=== PATIENT | male | born 1970 | race Caucasian/White ===

== ENCOUNTER 2017-05-21 12:00 | Inpatient (IN) | payer BC ==
[2017-05-24] MEDS ORDERED: CEFAZOLIN/Water 2 GM/20 ML SYRINGE ONE (06:15)
[2017-05-24] MEDS ORDERED: Albumin 5% 500 ML ONE (06:26)
[2017-05-24] MEDS ORDERED: Midazolam HCl 5 mg/5 ml Vial ONE (06:28)
[2017-05-24] MEDS ORDERED: Fentanyl 250 MCG/5 ML VIAL ONE (06:28)
[2017-05-24] MEDS ORDERED: Dexmedetomidine 200 MCG/2 ML VIAL ONE (06:28)
[2017-05-24] MEDS ORDERED: Vecuronium 10 MG VIAL ONE ×2 (06:28→15:57)
[2017-05-24] MEDS ORDERED: Heparin 10,000 UNITS/1 ML VIAL 30,000 UNITS in Sodium Chloride 0.9% 1,000 ML FS SCH (06:45)
[2017-05-24 07:43] VITALS: BMI 32.6
[2017-05-24] MEDS ORDERED: Morphine 4 MG/ML VIAL SLOW IVP PRN (12:18)
[2017-05-24] MEDS ORDERED: Acetaminophen 325 MG TAB PO PRN (12:18)
[2017-05-24] MEDS ORDERED: Nitroglycerin 50 MG/250 ML BOT 250 ML IVPB PRN (12:18)
[2017-05-24] MEDS ORDERED: hydrALAZINE 20 MG/ML VIAL SLOW IVP PRN (12:18)
[2017-05-24] MEDS ORDERED: Norepinephrine 8 MG/0.9% NS 250 ML IVPB PRN (12:18)
[2017-05-24] MEDS ORDERED: Fentanyl 100 MCG/2 ML VIAL SLOW IVP PRN (12:18)
[2017-05-24] MEDS ORDERED: Potassium Chloride 20 MEQ/100 ML PREMIX BAG IVPB PRN (12:18)
[2017-05-24] MEDS ORDERED: Post-Op Insulin Drip Protocol IVPB ONE (12:18)
[2017-05-24] MEDS ORDERED: Guaifenesin DM 100-10/5 ML UDCUP PO PRN (12:18)
[2017-05-24] MEDS ORDERED: Bisacodyl 10 MG SUPP PR PRN (12:18)
[2017-05-24] MEDS ORDERED: Phenylephrine 10 MG/NS 250 ML 250 ML IVPB PRN (12:18)
[2017-05-24] MEDS ORDERED: HYDROcodone/Acetaminophen 5/325 mg Tablet PO PRN (12:18)
[2017-05-24] MEDS ORDERED: Promethazine HCl 25 MG/ML VIAL IM PRN (12:18)
[2017-05-24] MEDS ORDERED: Hetastarch 6% 500 ML 500 ML IVPB PRN (12:18)
[2017-05-24] MEDS ORDERED: Ondansetron HCl/PF 4 MG/2 ML Vial IVP PRN (12:18)
[2017-05-24] MEDS ORDERED: DOPamine 400 MG/D5W 250 ML 250 ML IVPB PRN (12:18)
[2017-05-24] MEDS ORDERED: Bisacodyl 5 MG TAB PO PRN (12:18)
[2017-05-24] MEDS ORDERED: Mag-Al 1200 mg/1200 mg/30 ML UDCUP PO PRN (12:18)
[2017-05-24] MEDS ORDERED: Magnesium Sulfate 5 GM in Sodium Chloride 0.9% 1,000 ML IV SCH (12:18)
--- NOTE | 2017-05-24 12:34 | OP ---
POSTOPERATIVE DIAGNOSIS: Coronary artery disease. PROCEDURE: Coronary artery bypass graft x5, good quality MERINO to a 1.5 mm LAD at the takeoff of the second diagonal and 1.25 mm LAD distally on the heart. Good quality radial artery to a 1.25 mm OM, s aphenous vein good quality to a 1.5 mm proximal diagonal and a 2 mm posterolateral. SURGEON: Dr. Stock. HEALTH THERAPIST: Dr. Garcia. TRANSFUSION: None. PROCEDURE IN DETAIL: After adequate anesthesia had been obtained, the patient was prepped and draped and I harvested the left radial artery. Collateral flow was ensured with plethysmography and that t his wound was closed. I then began the endovascular vein harvest of the greater saphenous vein, mobi lizing the vein on the left. Prior to dividing any branches, I turned my attention to median sternot rell where left internal mammary artery was harvested, at which point Dr. Garcia came and completed the endovascular vein harvest. The patient was heparinized, mammary divided distally, and passed sports team marketing intern ior to the thymus gland. Aorta and right atrium were cannulated and cardiopulmonary bypass was insti tuted. Vessels were inspected, aorta cross-clamped, and a liter of cold blood cardioplegia was given through the aortic root. The lateral aspect of the heart had significant scar tissue related to pre vious occlusion of the circumflex system. Transesophageal echo, however, showed there was fairly goo d lateral wall motion. Distal anastomoses were all completed following which the cross-clamp was rem blank and the partial occluding clamp placed and 2 vein grafts anastomosed to the aortic root from the right and diagonal vein grafts. These were marked with rings following which the radial artery was anastomosed to the dia of the diagonal vein graft. The patient was then weaned from cardiopulmonary bypass, cannulas removed, and protamine given systemically. Aortic cannulation site was secured wit h a 4-0 Prolene suture. Mediastinal and left pleural drains were placed, following which the sternum was reapproximated with #7 interrupted wire using vancomycin paste on the sternal edges, platelet ri ch blood, and platelet-poor plasma. Subcutaneous tissue and skin were closed in layers.
[2017-05-24 12:44] LABS: INR-International Normal Ratio 1.3; PTT 27.9 SEC (22.9-36.1)
[2017-05-24 12:47] LABS: Actual Bicarbonate (HCO3a) 20.5 mEq/L (22-26); Base Excess (BEa) -4.4 mEq/L (0 (+/-) 2.5); CO2 Tension 37.1 mmHg (35.0-45.0); Hematocrit-ABG 33.7 % (42.0-52.0); Hemoglobin (Hb) 11.9 g/dL (14.0-18.0); pH, Arterial 7.36 (7.35-7.45)
[2017-05-24 12:48] LABS: ALV-art Gradient 146.125 (0-20); Calcium, Ionized 1.1 mmol/L (1.12-1.30); Puncture Site ALINE
[2017-05-24] MEDS ORDERED: Dextrose 5% in Water 1,000 ML IV PRN (12:49)
[2017-05-24] MEDS ORDERED: Dextrose 50% Abboject 50 ML SYRINGE SLOW IVP PRN (12:49)
[2017-05-24 13:00] LABS: Anion Gap 11 mmol/L (10-20); BUN (Urea Nitrogen) 18 mg/dL (8.9-20.6); Calc. Creatinine Clearance 94 mL/min (70-130); Calcium 7.6 mg/dL (7.8-10.44); Carbon Dioxide 21 mmol/L (22-29); Chloride 109 mmol/L (98-107); Estimated GFR-MDRD 54; Glucose 144 mg/dL (70-105); Sodium 137 mmol/L (136-145)
[2017-05-24] MEDS: Sodium Chloride 0.45% 1,000 ML IV SCH ×2 (13:06→21:19)
[2017-05-24] MEDS: Insulin Regular 300 UNITS/3 ML VIAL SC PRN ×2 (13:09→23:53)
[2017-05-24 13:22] LABS: #Basophils 0.1 thou/uL (0.0-0.2); #Eosinphils 0.1 thou/uL (0.0-0.7); #Lymphocytes 2.1 thou/uL (1.20-3.40); #Monocytes 0.9 thou/uL (0.11-0.59); #Neutrophils 12.9 thou/uL (1.40-6.50); %Basophils 0.4 % (0.0-1.0); %Eosinophils 0.9 % (0.0-10.0); %Lymphocytes 12.7 % (21.0-51.0); %Monocytes 5.6 % (0.0-10.0); %Neutrophils 80.3 % (42.0-75.0); Hemoglobin 12.2 g/dL (14.0-18.0); Mean Corpuscular HGB CONC 34.5 g/dL (32.0-36.0); Mean Corpuscular Hemoglobin 31.6 pg (27.0-31.0); Mean Corpuscular Volume 91.5 fl (80.0-94.0); Mean Platelet Volume 7.1 fL (7.4-10.4); Platelet Count 172 thou/uL (130-400); RBC Distribution Width 10.9 % (11.5-14.5); Red Blood Cell (RBC) Count 3.85 mill/uL (4.70-6.10); White Blood Cell (WBC) Count 16.1 thou/uL (4.8-10.8)
[2017-05-24] MEDS: CEFAZOLIN/Water 2 GM/20 ML SYRINGE SLOW IVP SCH ×2 (13:35→21:16)
[2017-05-24] MEDS: Fentanyl 100 MCG/2 ML VIAL SLOW IVP PRN ×4 (13:41→22:34)
--- NOTE | 2017-05-24 15:23 | RAD ---
PORTABLE CHEST 1 VIEW: Date: 05/24/17 Time: 1223 hours HISTORY: Postop open heart surgery. Respiratory failure. FINDINGS/IMPRESSION: There are changes of median sternotomy. There is an endotracheal tube with tip at the level of the cl avicular heads. A nasogastric tube is seen in the stomach. There is a right subclavian central line w ith tip in the projection of the SVC. The heart size is enlarged. Mediastinal and left-sided chest tu bes are present. No lobar consolidation, pneumothoraces, hafsa pulmonary edema, or large effusions ar e identified. A small left pleural effusion may be present. POS: [facility]
[2017-05-24] MEDS ORDERED: Papaverine 60 MG/2 ML VIAL ONE (15:57)
[2017-05-24] MEDS ORDERED: Potassium Chloride 60 MEQ/30 ML VIAL ONE (15:57)
[2017-05-24] MEDS ORDERED: Aminocaproic Acid 5 GM/20 ML VIAL ONE (15:57)
[2017-05-24] MEDS ORDERED: Cardioplegic Soln 1,000 ML BAG ONE (15:57)
[2017-05-24] MEDS ORDERED: PHENYLEPHRINE-NS 100 MCG/ML 10 ML SYRINGE ONE (15:57)
[2017-05-24] MEDS ORDERED: Magnesium 5 GM/10 ML VIAL ONE (15:57)
[2017-05-24] MEDS ORDERED: Lidocaine 2% PF 100 mg/5 ml Syringe ONE (15:57)
[2017-05-24] MEDS ORDERED: Lidocaine 1% PF 5 ML VIAL ONE (15:57)
[2017-05-24] MEDS ORDERED: Sodium Bicarb 50 MEQ/50 ML VIAL ONE (15:57)
[2017-05-24] MEDS ORDERED: Nitroglycerin 50 MG/250 ML BOT ONE (15:57)
[2017-05-24] MEDS ORDERED: Calcium Chloride 1 GM/10 ML Abboject SYRINGE ONE (15:57)
[2017-05-24] MEDS ORDERED: Heparin 30,000 units/30 ml VIAL ONE (15:57)
[2017-05-24] MEDS ORDERED: Propofol 200 MG/20 ML VIAL ONE (15:57)
[2017-05-24] MEDS ORDERED: ePHEDrine/0.9% NaCl/PF SYRINGE 50 mg/10 ml ONE (15:57)
[2017-05-24] MEDS ORDERED: Heparin 5,000 UNITS/ML VIAL ONE (15:57)
[2017-05-24] MEDS ORDERED: Thrombin 5000 UNITS/5 ML VIAL ONE (15:57)
[2017-05-24] MEDS ORDERED: Protamine Sulfate 250 MG/25 ML VIAL ONE (15:57)
[2017-05-24 16:16] LABS: Actual Bicarbonate (HCO3a) 20.1 mEq/L (22-26); Base Excess (BEa) -4.8 mEq/L (0 (+/-) 2.5); CO2 Tension 36.5 mmHg (35.0-45.0); Calcium, Ionized 1.1 mmol/L (1.12-1.30); Hematocrit-ABG 34.6 % (42.0-52.0); Hemoglobin (Hb) 12.2 g/dL (14.0-18.0); pH, Arterial 7.36 (7.35-7.45)
[2017-05-24 16:17] LABS: ALV-art Gradient 62.575 (0-20); Puncture Site ALINE
--- NOTE | 2017-05-24 16:25 | CON ---
DATE OF CONSULTATION: 05/24/2017 SERVICE: Pulmonary Medicine. REASON FOR CONSULTATION: ICU patient. HISTORY OF PRESENT ILLNESS: The patient is a 47-year-old white male with past medical history signif icant for morbid obesity, dyslipidemia, and hypertension. He was in his usual state of health when s tarted having onset of increasing dyspnea that limited his activity. He was being worked up in the o [facility] setting where he was demonstrated to have severe 3-vessel disease. He was referred for a c oronary bypass graft surgery. He is immediately postop day #0 from that surgery. He is breathing co mfortably on mechanical ventilation. The weaning protocol is in place. He is awake and alert. He i s following all commands. Otherwise, he was in his usual state of health prior to the operation. PAST MEDICAL HISTORY: 1. Asthma. 2. Dyslipidemia. 3. Hypertension. 4. Coronary artery disease. PAST SURGICAL HISTORY: 1. Herniorrhaphy. 2. Right shoulder surgery. 3. Repair of femur fracture. FAMILY HISTORY: Noncontributory. SOCIAL HISTORY: He drinks some alcohol occasionally. He denies any illicit drugs or smoking cigaret lidia. He did some chewing tobacco previously. He has no exposure to chemicals, dust asbestos or tube rculosis. ALLERGIES: No known drug allergies. MEDICATIONS: List of his inpatient medications were reviewed. There are no specific updates made at this time. REVIEW OF SYSTEMS: General, head, ears, eyes, nose, throat, cardiovascular, respiratory, GI, , mus culoskeletal, neurologic and skin is negative except as mentioned in the HPI. PHYSICAL EXAMINATION: VITAL SIGNS: Afebrile, pulse 82, blood pressure 94/46, respirations 8, saturation 100% on 2 liters n anna cannula. HEENT: Normocephalic, atraumatic. Sclerae are white, conjunctivae pink. Oral and nasal mucosa is m oist without lesions. LUNGS: Decent air entry. He has no prolonged expiratory phase. There are some crackles present, bu t I do not appreciate rhonchi or wheezing currently. HEART: Normal rate, regular. ABDOMEN: Soft. Tender to palpation, particularly in the epigastric region. There is no rebound or guarding. Bowel sounds are hypoactive. GENITOURINARY: Pereira catheter in place. NEUROLOGIC: Grossly nonfocal. LABORATORY DATA: WBC 16.1, hemoglobin 12.0 and roughly stable. INR is 1.3. PH of 7.36, pCO2 of 37, pO2 of 164. Creatinine is 1.39 and roughly stable. Basic metabolic profile is otherwise unremarkab le. Calcium is 7.6, however. IMAGING: Chest x-ray demonstrates a left-sided chest tube. There is a mediastinal drain is also in place. Median sternotomy wires are there. The endotracheal tube terminates roughly 5 cm above the l evel of the syed. There is likely a left-sided pleural effusion present. The right costophrenic a ngle remains sharp. The subclavian central venous catheter terminates in the right atrium. ASSESSMENT: 1. Acute hypoxic respiratory failure. 2. Asthma without acute exacerbation. 3. Coronary artery disease, status post coronary artery bypass graft x5 vessels. PLAN: We will provide the patient with p.r.n. nebulized medications. We will continue our routine p ostop care. Pulmonary Critical Care will continue to follow in this location. Ultimately, the patie nt may benefit from outpatient evaluation for sleep apnea. CRITICAL CARE TIME: 30 minutes.
[2017-05-24 18:30] LABS: Potassium 5.2 mmol/L (3.5-5.1)
[2017-05-24] MEDS ORDERED: Atorvastatin Calcium 20 MG TAB PO SCH (21:00)
[2017-05-24] MEDS ORDERED: Famotidine/PF 20 mg/2ml Vial SLOW IVP SCH (21:00)
[2017-05-24] MEDS: HYDROcodone/Acetaminophen 5/325 mg Tablet PO PRN (23:48)
[2017-05-25] MEDS: Fentanyl 100 MCG/2 ML VIAL SLOW IVP PRN ×8 (02:02→18:20)
[2017-05-25 04:21] LABS: #Lymphocytes 2.1 thou/uL (1.20-3.40); #Monocytes 1.3 thou/uL (0.11-0.59); #Neutrophils 7.6 thou/uL (1.40-6.50); %Basophils 0.2 % (0.0-1.0); %Eosinophils 0.1 % (0.0-10.0); %Lymphocytes 18.9 % (21.0-51.0); %Monocytes 11.9 % (0.0-10.0); %Neutrophils 68.8 % (42.0-75.0); Hemoglobin 12.1 g/dL (14.0-18.0); Mean Corpuscular HGB CONC 34.7 g/dL (32.0-36.0); Mean Corpuscular Hemoglobin 32.4 pg (27.0-31.0); Mean Corpuscular Volume 93.5 fl (80.0-94.0); Mean Platelet Volume 7.1 fL (7.4-10.4); Platelet Count 208 thou/uL (130-400); RBC Distribution Width 11.1 % (11.5-14.5); Red Blood Cell (RBC) Count 3.72 mill/uL (4.70-6.10); White Blood Cell (WBC) Count 11.1 thou/uL (4.8-10.8)
[2017-05-25 04:34] LABS: Anion Gap 10 mmol/L (10-20); BUN (Urea Nitrogen) 17 mg/dL (8.9-20.6); Calc. Creatinine Clearance 93 mL/min (70-130); Calcium 7.8 mg/dL (7.8-10.44); Carbon Dioxide 24 mmol/L (22-29); Chloride 107 mmol/L (98-107); Estimated GFR-MDRD 53; Glucose 117 mg/dL (70-105); Potassium 4.4 mmol/L (3.5-5.1); Sodium 137 mmol/L (136-145)
[2017-05-25] MEDS: HYDROcodone/Acetaminophen 5/325 mg Tablet PO PRN (04:48)
[2017-05-25] MEDS: CEFAZOLIN/Water 2 GM/20 ML SYRINGE SLOW IVP SCH (05:13)
[2017-05-25] MEDS: Sodium Chloride 0.45% 1,000 ML IV SCH (05:13)
[2017-05-25] MEDS ORDERED: Mineral Oil ENEMA PR PRN (06:55)
[2017-05-25] MEDS ORDERED: Zolpidem Tartrate 5 MG TAB PO PRN (06:55)
[2017-05-25] MEDS ORDERED: Bisacodyl 5 MG TAB PO PRN (06:55)
[2017-05-25] MEDS ORDERED: Mag-Al 1200 mg/1200 mg/30 ML UDCUP PO PRN (06:55)
[2017-05-25] MEDS ORDERED: Guaifenesin DM 100-10/5 ML UDCUP PO PRN (06:55)
[2017-05-25] MEDS ORDERED: Ondansetron HCl/PF 4 MG/2 ML Vial IVP PRN (06:55)
[2017-05-25] MEDS ORDERED: Milk Of Magnesia 30 ML UDCUP PO PRN (06:55)
[2017-05-25] MEDS ORDERED: Acetaminophen 325 MG TAB PO PRN (06:55)
[2017-05-25] MEDS ORDERED: HYDROcodone/Acetaminophen 5/325 mg Tablet PO PRN ×2 (06:55)
[2017-05-25] MEDS ORDERED: Nitroglycerin 0.4 MG TAB (25 Tab Bottle) SL PRN (06:55)
[2017-05-25] MEDS ORDERED: Bisacodyl 10 MG SUPP PR PRN (06:55)
[2017-05-25] MEDS ORDERED: Fentanyl 100 MCG/2 ML VIAL SLOW IVP PRN (06:55)
--- NOTE | 2017-05-25 08:37 | RAD ---
PORTABLE UPRIGHT FRONTAL CHEST RADIOGRAPH: Date: 05-25-17 Comparison: 05-14-17 History: Evaluate chest following open heart surgery. FINDINGS: Post-surgical drainage catheters overlie the lower left hemithorax and the mediastinum. Endotracheal tube and nasogastric tube have been removed. Midline sternotomy wires are unchanged. Stable right chucky ed vascular catheter. Mild hazy increased density is seen in the medial left lung base suggesting vol ume loss. No focal consolidation or alveolar edema. IMPRESSION: Lines and tubes as detailed above. Mild patchy opacity in the medial left base noted. POS: H
[2017-05-25] MEDS: Aspirin 325 mg Enteric Coated Tablet PO SCH (08:47)
[2017-05-25] MEDS: Polyethylene Glycol 3350 17 GM Packet PO SCH (08:47)
[2017-05-25] MEDS: Famotidine 20 MG TAB PO SCH ×2 (08:47→20:19)
[2017-05-25] MEDS ORDERED: Aspirin 325 MG TAB PO SCH (09:00)
--- NOTE | 2017-05-25 09:07 | PRG ---
DATE OF SERVICE: 05/25/2017 SERVICE: Pulmonary Medicine. INTERVAL HISTORY: The patient is doing fine from a respiratory standpoint. He was having significan t amounts of back discomfort this morning. When the chest tubes were pulled, it is eased up a little bit, although it is still there. He previously had horrendous pleuritic chest discomfort that made for multiple nights. That being said, this is also improved. He denies any current fevers, chills o r overnight events. PHYSICAL EXAMINATION: VITAL SIGNS: Afebrile, pulse 72, blood pressure 199/64, respirations 12, saturation 94% on 2 liters nasal cannula. GENERAL: The patient is awake, alert, no apparent distress. LUNGS: Decent air entry. I do not appreciate wheezing, rhonchi, or crackles today. HEART: Normal rate, regular. ABDOMEN: Soft, nontender, nondistended. Bowel sounds are positive. MUSCULOSKELETAL: No cyanosis or clubbing. There is a trace pitting in the bilateral lower extremiti es. NEUROLOGIC: Grossly nonfocal. LABORATORY DATA: WBC 11.1, hemoglobin 12.1 and stable, platelets 208,000. INR 1.3. PH 7.36, pCO2 3 6, pO2 177 as of yesterday. Creatinine 1.41 and roughly stable. Basic metabolic profile is otherwis e unremarkable. Calcium 7.8. IMAGING: Chest x-ray demonstrates stable tubes and lines. Interval extubation has been performed. There is mediastinal, and left-sided chest tube which remain in stable position. A right subclavian central venous catheter terminates at the cavoatrial junction. No obvious effusion or infiltrate is evident. There seems to be a little volume loss in both lungs. ASSESSMENT: 1. Acute hypoxic respiratory failure, possibly secondary to a little atelectasis. 2. Asthma without acute exacerbation. 3. Coronary artery disease, status post coronary artery bypass graft x5 vessels, postop day #1. PLAN: We will continue p.r.n. nebulized medications. In the outpatient setting, the patient may qi efit from a sleep apnea evaluation. We will talk to the patient about whether or not he is intereste d in this on the floor.
[2017-05-25] MEDS: Cyclobenzaprine 10 MG TAB PO PRN ×2 (11:33→20:18)
--- NOTE | 2017-05-25 13:31 | CON ---
DATE OF CONSULTATION: 05/24/2017 REASON FOR CONSULTATION: Coronary artery disease, bypass surgery. HISTORY OF PRESENT ILLNESS: Mr. Gee is a very pleasant 47-year-old white gentleman, very well know n to myself who comes to the hospital for a planned bypass surgery. He presented to my office with s ymptoms of chest pain and shortness of breath with exertion. He had a very abnormal stress test and had heart catheterization that showed multivessel disease. He underwent bypass surgery earlier today by Dr. Stock. He did well postoperatively. On my evaluation today, he was still intubated, but thomas ke and following commands. Blood pressure is maintaining without issues. PAST MEDICAL HISTORY: 1. Bronchial asthma. 2. Hyperlipidemia. 3. Hypertension. 4. Coronary artery disease. PAST SURGICAL HISTORY: 1. Herniorrhaphy. 2. Right shoulder surgery. 3. Femur fracture repair. 4. CABG x5 as above. FAMILY HISTORY: Noncontributory. SOCIAL HISTORY: Social alcohol use, no drug or tobacco use. He used to be an athlete in college. ALLERGIES: No known drug allergies. OUTPATIENT MEDICATIONS: 1. Aspirin 81 a day. 2. Albuterol inhaler. 3. Zolpidem. 4. Hydrochlorothiazide 25 mg. 5. Losartan 100 mg a day. 6. Atorvastatin 20 mg a day. REVIEW OF SYSTEMS: Unobtainable as the patient is sedated and intubated. PHYSICAL EXAMINATION: VITAL SIGNS: Temperature 97.4, pulse 82, respiration rate 12, satting 96% on 30% FiO2. GENERAL: Awake, following commands, but remains intubated. LUNGS: Clear. CARDIOVASCULAR: S1, S2. There is a 2 component rub likely from the chest. ABDOMEN: Soft. EXTREMITIES: 1+ edema. SKIN: Warm and dry. LABORATORY WORK: Reviewed. ASSESSMENT AND PLAN: 1. Coronary artery disease, status post bypass surgery. 2. Status post coronary artery bypass graft x5. PLAN: 1. Continue postop care. Most likely, he will be extubated soon as he is already awake and followin g commands. 2. Aspirin, statin for life. Beta ismael and ARB inhibitor once blood pressure allows. Most likel y, all his blood pressure medication will be changed completely once he is discharged. [place]. 3. We will follow.
--- NOTE | 2017-05-25 17:47 | PDOC.CTH ---
Cardiology Progress Note - Subjective He had his chest tubes our and is on the floor now. He is having a lot of pain issues on current pain regimen. - Objective Vital Signs Temp Pulse Pulse Pulse Resp BP BP 05/25/17 16:48 99.3 F 89 16 05/25/17 12:55 98.5 F 05/25/17 10:00 97.9 F 69 16 05/25/17 08:44 69 79 134/56 L 103/68 05/25/17 07:10 98.1 F 72 12 BP Pulse Ox Pulse Ox Pulse Ox 05/25/17 16:48 118/68 91 L 05/25/17 12:55 114/68 05/25/17 10:00 91 L 05/25/17 08:44 93 L 93 L 05/25/17 07:10 94 L Weight 226 lb 13.69 oz 05/24/17 05/25/17 05/26/17 06:59 06:59 06:59 Intake Total 2976 Output Total 2325 270 Balance 651 -270 - Physical Examination General/Neuro: alert & oriented x3, NAD Neck: no JVD present Lungs: CTA, unlabored respirations Heart: RRR Abdomen: NT/ND Extremities: + edema B (1+) - Telemetry Telemetry Rhythm: NSR - Labs Result Diagrams: 05/25/17 04:16 05/25/17 04:16 - Assessment/Plan 1. Multivessel CAD. 2. S/P CABG 3. HTN 4. HLP PLAN: - Increase PT as tolerated. - Will start low dose BB. ACEI if BP allows. - Aspirin and statin for life. - Will try toradol for pain.
[2017-05-25] MEDS: Ketorolac Tromethamine 30 MG/ML VIAL IVP SCH ×2 (18:57→23:43)
[2017-05-25] MEDS: Atorvastatin Calcium 20 MG TAB PO SCH (20:19)
[2017-05-26] MEDS: Ketorolac Tromethamine 30 MG/ML VIAL IVP SCH ×4 (05:18→23:57)
[2017-05-26] MEDS: Polyethylene Glycol 3350 17 GM Packet PO SCH (08:34)
[2017-05-26] MEDS: Cyclobenzaprine 10 MG TAB PO PRN ×2 (08:38→21:22)
[2017-05-26] MEDS: Potassium Chloride 10 MEQ TAB PO SCH (08:38)
[2017-05-26] MEDS: Aspirin 325 mg Enteric Coated Tablet PO SCH (08:39)
[2017-05-26] MEDS: Famotidine 20 MG TAB PO SCH ×2 (08:39→21:22)
[2017-05-26] MEDS: Furosemide 40 MG TAB PO SCH (08:39)
[2017-05-26 12:13] LABS: Actual Bicarbonate (HCO3a) 22.5 mEq/L (22-26); Base Excess (BEa) -2.5 mEq/L (0 (+/-) 2.5); Hematocrit-ABG 41.1 % (42.0-52.0); Hemoglobin (Hb) 13.9 g/dL (14.0-18.0); O2 Tension (PaO2) 428.4 mmHg (80.0-100.0); pH, Arterial 7.37 (7.35-7.45)
[2017-05-26 12:14] LABS: Analyzer IN Cardio OR; Calcium, Ionized 1.1 mmol/L (1.12-1.30); Puncture Site ALINE
[2017-05-26 12:14] LABS: Actual Bicarbonate (HCO3a) 20.1 mEq/L (22-26); Base Excess (BEa) -4.7 mEq/L (0 (+/-) 2.5); CO2 Tension 36.7 mmHg (35.0-45.0); Hematocrit-ABG 39.1 % (42.0-52.0); Hemoglobin (Hb) 13.5 g/dL (14.0-18.0); O2 Tension (PaO2) 485.6 mmHg (80.0-100.0); pH, Arterial 7.36 (7.35-7.45)
[2017-05-26 12:15] LABS: Analyzer IN Cardio OR; Calcium, Ionized 1.1 mmol/L (1.12-1.30); Puncture Site ALINE
[2017-05-26 12:15] LABS: CO2 Tension 37.6 mmHg (35.0-45.0); pH, Arterial 7.38 (7.35-7.45)
[2017-05-26 12:16] LABS: Actual Bicarbonate (HCO3a) 21.9 mEq/L (22-26); Analyzer IN Cardio OR; Base Excess (BEa) -2.8 mEq/L (0 (+/-) 2.5); Calcium, Ionized 0.9 mmol/L (1.12-1.30); Hematocrit-ABG 29.9 % (42.0-52.0); Hemoglobin (Hb) 10.3 g/dL (14.0-18.0); O2 Tension (PaO2) 557.2 mmHg (80.0-100.0); Puncture Site ALINE
[2017-05-26 12:17] LABS: Actual Bicarbonate (HCO3a) 22.2 mEq/L (22-26); Base Excess (BEa) -3.6 mEq/L (0 (+/-) 2.5); Hematocrit-ABG 28.3 % (42.0-52.0); Hemoglobin (Hb) 9.7 g/dL (14.0-18.0); O2 Tension (PaO2) 393.3 mmHg (80.0-100.0); pH, Arterial 7.33 (7.35-7.45)
[2017-05-26 12:18] LABS: Analyzer IN Cardio OR; Calcium, Ionized 1.1 mmol/L (1.12-1.30); Puncture Site ALINE
[2017-05-26 12:19] LABS: Actual Bicarbonate (HCO3a) 20.8 mEq/L (22-26); Analyzer IN Cardio OR; Base Excess (BEa) -3.5 mEq/L (0 (+/-) 2.5); CO2 Tension 34.6 mmHg (35.0-45.0); Calcium, Ionized 1.2 mmol/L (1.12-1.30); O2 Tension (PaO2) 448.5 mmHg (80.0-100.0); Puncture Site ALINE
[2017-05-26] MEDS: Fentanyl 100 MCG/2 ML VIAL SLOW IVP PRN (16:44)
--- NOTE | 2017-05-26 17:18 | PRG ---
DATE OF SERVICE: 05/26/2017 SERVICE: Pulmonary Medicine. INTERVAL HISTORY: The patient is doing fantastic from a respiratory perspective. He has been weaned down to room air. He denies any chest pain, fevers, chills, nausea, vomiting or shortness of breath . He got up and walked today, up and down the hallway. He has done this on 4 separate occasions. O therwise, he is feeling okay. He is returning to his usual state slowly. PHYSICAL EXAMINATION: VITAL SIGNS: Afebrile, pulse 91, blood pressure 117/69, respirations 18, saturation 93% on room air. GENERAL: The patient is awake, alert, no apparent distress. LUNGS: Decent air entry without prolonged expiratory phase, wheezing, rhonchi or crackles. HEART: Normal rate, regular. ABDOMEN: Soft, nontender, and nondistended. Bowel sounds are positive. MUSCULOSKELETAL: No cyanosis or clubbing. There is trace pitting in the bilateral lower extremities . NEUROLOGIC: Grossly nonfocal. LABORATORY DATA: Glucose ranges from 121-136. ASSESSMENT: 1. Acute hypoxic respiratory failure, resolved. 2. Asthma without acute exacerbation. 3. Coronary artery disease, status post coronary artery bypass graft x5 vessels, postop day #2. DISCUSSION AND PLAN: At this point, the patient has no requirements for ongoing pulmonary or [facility] care opinion. He has no signs of an acute asthma attack at this time. If he develops any increasi ng respiratory distress, give me a phone call. Otherwise, I will sign off.
--- NOTE | 2017-05-26 17:32 | PDOC.CTH ---
Cardiology Progress Note - Subjective He is doing better today, His pain is better controlled with toradol. - Objective Vital Signs Temp Pulse Pulse Pulse Resp BP BP 05/26/17 16:45 99.3 F 91 18 05/26/17 14:50 99 90 119/61 111/59 L 05/26/17 11:29 98.7 F 87 15 05/26/17 08:37 88 85 121/68 126/67 05/26/17 08:35 99.7 F H 87 16 05/26/17 08:33 99.7 F H 87 16 BP BP Pulse Ox Pulse Ox Pulse Ox 05/26/17 16:45 117/69 93 L 05/26/17 14:50 94 L 95 05/26/17 11:29 121/66 91 L 05/26/17 08:37 94 L 97 05/26/17 08:35 93 L 05/26/17 08:33 126/67 Weight 232 lb 9.6 oz 05/25/17 05/26/17 05/27/17 06:59 06:59 06:59 Intake Total 2976 960 1200 Output Total 2325 595 450 Balance 651 365 750 - Physical Examination General/Neuro: alert & oriented x3, NAD Neck: no JVD present Lungs: CTA, unlabored respirations Heart: RRR, other: (2 component rub. ) Abdomen: NT/ND Extremities: + edema B (1+) - Telemetry Telemetry Rhythm: NSR - Labs Result Diagrams: 05/25/17 04:16 05/25/17 04:16 - Assessment/Plan 1. Multivessel CAD. 2. S/P CABG 3. HTN 4. HLP PLAN: - Increase PT as tolerated. - BP borderline low for BB & ACEI. - Aspirin and statin for life. - Toradol working well for pain.
[2017-05-26] MEDS: Atorvastatin Calcium 20 MG TAB PO SCH (21:22)
[2017-05-27] MEDS: Ketorolac Tromethamine 30 MG/ML VIAL IVP SCH ×3 (05:55→17:33)
[2017-05-27 06:29] LABS: Anion Gap 9 mmol/L (10-20); BUN (Urea Nitrogen) 21 mg/dL (8.9-20.6); Calc. Creatinine Clearance 82 mL/min (70-130); Calcium 8.6 mg/dL (7.8-10.44); Carbon Dioxide 27 mmol/L (22-29); Chloride 105 mmol/L (98-107); Estimated GFR-MDRD 46; Glucose 99 mg/dL (70-105); Potassium 4.2 mmol/L (3.5-5.1); Sodium 137 mmol/L (136-145)
[2017-05-27] MEDS: Furosemide 40 MG TAB PO SCH (08:45)
[2017-05-27] MEDS: Potassium Chloride 10 MEQ TAB PO SCH (08:45)
[2017-05-27] MEDS: Polyethylene Glycol 3350 17 GM Packet PO SCH (08:45)
[2017-05-27] MEDS: Aspirin 325 mg Enteric Coated Tablet PO SCH (08:45)
[2017-05-27] MEDS: Famotidine 20 MG TAB PO SCH ×2 (08:45→20:30)
--- NOTE | 2017-05-27 17:49 | PDOC.CTH ---
Cardiology Progress Note - Subjective Doing well. He had a BM today and feels much better. - Objective Vital Signs Temp Pulse Pulse Pulse Resp BP BP 05/27/17 16:05 98.1 F 84 18 05/27/17 13:34 87 117/66 05/27/17 12:06 98.1 F 83 18 05/27/17 09:51 84 84 129/69 128/71 05/27/17 08:40 98.2 F 85 18 05/27/17 08:00 98.2 F 85 18 BP BP Pulse Ox Pulse Ox 05/27/17 16:05 113/53 L 91 L 05/27/17 13:34 70 L 05/27/17 12:06 118/67 97 05/27/17 09:51 05/27/17 08:40 108/58 L 05/27/17 08:00 Weight 231 lb 6.4 oz 05/26/17 05/27/17 05/28/17 06:59 06:59 06:59 Intake Total 960 1200 Output Total 595 450 Balance 365 750 - Physical Examination General/Neuro: alert & oriented x3, NAD Neck: no JVD present Lungs: CTA, unlabored respirations Heart: RRR Abdomen: NT/ND Extremities: + edema B (1+ left.) - Telemetry Telemetry Rhythm: NSR - Labs Result Diagrams: 05/25/17 04:16 05/27/17 06:02 - Assessment/Plan 1. Multivessel CAD. 2. S/P CABG 3. HTN 4. HLP PLAN: - Increase PT as tolerated. - Will start very low dose Toprol XL. - Aspirin and statin for life. - Home at any time from cardiac perspective.
[2017-05-27] MEDS: Cyclobenzaprine 10 MG TAB PO PRN (20:30)
[2017-05-27] MEDS: Atorvastatin Calcium 20 MG TAB PO SCH (20:30)
[2017-05-28] MEDS: Ketorolac Tromethamine 30 MG/ML VIAL IVP SCH ×2 (00:18→05:52)
[2017-05-28] MEDS: Potassium Chloride 10 MEQ TAB PO SCH (09:02)
[2017-05-28] MEDS: Polyethylene Glycol 3350 17 GM Packet PO SCH (09:02)
[2017-05-28] MEDS: Furosemide 40 MG TAB PO SCH (09:02)
[2017-05-28] MEDS: Aspirin 325 mg Enteric Coated Tablet PO SCH (09:02)
[2017-05-28] MEDS: Famotidine 20 MG TAB PO SCH (09:02)
--- NOTE | 2017-05-28 12:55 | PDOC.CTH ---
Cardiology Progress Note - Subjective he is doing very well. He has been walking around without issues, he does get more SOB than normal but imroving every day. - Objective Vital Signs Temp Pulse Pulse Resp BP BP BP 05/28/17 09:04 70 144/69 H 05/28/17 09:00 97.5 F L 72 18 126/75 05/28/17 08:00 97.5 F L 72 18 05/28/17 04:02 98.2 F 77 18 109/76 Pulse Ox 05/28/17 09:04 05/28/17 09:00 05/28/17 08:00 05/28/17 04:02 94 L Weight 233 lb 4.8 oz 05/27/17 05/28/17 05/29/17 06:59 06:59 06:59 Intake Total 1200 Output Total 450 Balance 750 - Physical Examination General/Neuro: alert & oriented x3, NAD Neck: no JVD present Lungs: CTA, unlabored respirations Heart: RRR Abdomen: NT/ND Extremities: + edema B (1+) - Telemetry Telemetry Rhythm: NSR - Labs Result Diagrams: 05/25/17 04:16 05/27/17 06:02 - Assessment/Plan 1. Multivessel CAD. 2. S/P CABG 3. HTN 4. HLP PLAN: - May d/c home today. - Continue Toprol XL, very low dose. - His BP is borderline low and will hold on starting ACEI for now. - Aspirin and stain for life. - Follow up with me in 1 month.
--- NOTE | 2017-05-28 13:00 | DIS ---
HOSPITAL COURSE: The patient was admitted for coronary bypass grafting on 05/24 with vessels grafted to the LAD proximally and distally. Radial artery to a small obtuse marginal that was previously co mpletely occluded, a saphenous vein good quality to a diagonal and a posterolateral branch. The paulina ent's postoperative course was uneventful and he was discharged home on 05/28 to resume his aspirin a nd statin at home as well as a prescription for metoprolol 12.5 b.i.d. and [place] 5/325 for pain. He is also to resume his aspirin at home. His losartan has been put on hold for the present time and ma y be resumed in the future as his HCTZ. His discharge creatinine was 1.6 compared with about 1.4 on admission.
[2017-05-28 13:49] VITALS: BP 142/89; TEMP 98.5
== END 2017-05-28 14:05 | disposition home or self-care (01) | DRG 235 ==
LOC: SURG A 05-24 05:30 → CCU 05-24 09:04 → 2NO 05-25 09:45
PROVIDERS: ADMIT Thoracic Surgery (Cardiothoracic Vascular Surgery); ATTEND Thoracic Surgery (Cardiothoracic Vascular Surgery)
PROC: 021209W Bypass Coronary Artery, Three Arteries from Aorta with Autologous Venous Tissue, Open Approach (ICD-10-PCS; principal; 2017-05-24)
PROC: 02100AW Bypass Coronary Artery, One Artery from Aorta with Autologous Arterial Tissue, Open Approach (ICD-10-PCS; 2017-05-24)
PROC: 06BQ4ZZ Excision of Left Saphenous Vein, Percutaneous Endoscopic Approach (ICD-10-PCS; 2017-05-24)
PROC: 03BC4ZZ Excision of Left Radial Artery, Percutaneous Endoscopic Approach (ICD-10-PCS; 2017-05-24)
PROC: 02100Z9 Bypass Coronary Artery, One Artery from Left Internal Mammary, Open Approach (ICD-10-PCS; 2017-05-24)
PROC: 5A1221Z Performance of Cardiac Output, Continuous (ICD-10-PCS; 2017-05-24)
DX: I25.118 Atherosclerotic heart disease of native coronary artery with other forms of angina pectoris (principal); J96.01 Acute respiratory failure with hypoxia; E78.5 Hyperlipidemia, unspecified; I10 Essential (primary) hypertension; Z79.82 Long term (current) use of aspirin; E66.01 Morbid (severe) obesity due to excess calories; Z68.33 Body mass index [BMI] 33.0-33.9, adult; Z87.891 Personal history of nicotine dependence; J45.909 Unspecified asthma, uncomplicated; Z79.02 Long term (current) use of antithrombotics/antiplatelets
CPT/HCPCS: 36415; 36416; 71045; 80048; 82805; 85025; 85610; 85730; 93005; 93010; 93798; 94002; J1642; J1644; J1815; J1885; J2001; J2250; J2440; J2704; J2720; J3010; J3370; J3475; J3480; J7050; P9045; S0017; S0028

== ENCOUNTER → 2017-05-21 | Outpatient (CLI) | payer BC ==
[2017-05-21 14:31] LABS: Hemoglobin 16.4 g/dL (14.0-18.0); Mean Corpuscular HGB CONC 34.4 g/dL (32.0-36.0); Mean Corpuscular Hemoglobin 31.3 pg (27.0-31.0); Mean Platelet Volume 7.4 fL (7.4-10.4); Platelet Count 291 thou/uL (130-400); RBC Distribution Width 11.1 % (11.5-14.5); Red Blood Cell (RBC) Count 5.24 mill/uL (4.70-6.10); White Blood Cell (WBC) Count 8.1 thou/uL (4.8-10.8)
[2017-05-21 14:53] LABS: Anion Gap 13 mmol/L (10-20); BUN (Urea Nitrogen) 17 mg/dL (8.9-20.6); Calc. Creatinine Clearance 0 mL/min (70-130); Calcium 9.5 mg/dL (7.8-10.44); Carbon Dioxide 26 mmol/L (22-29); Chloride 103 mmol/L (98-107); Estimated GFR-MDRD 53; Glucose 96 mg/dL (70-105); Potassium 3.7 mmol/L (3.5-5.1); Sodium 138 mmol/L (136-145)
--- NOTE | 2017-05-22 19:09 | EKG ---
Test Reason : Blood Pressure : / mmHG Vent. Rate : 096 BPM Atrial Rate : 096 BPM P-R Int : 146 ms QRS Dur : 092 ms QT Int : 352 ms P-R-T Axes : 052 -42 087 degrees QTc Int : 444 ms Normal sinus rhythm Left axis deviation Abnormal ECG No previous ECGs available Confirmed by CARLENE JUNIOR, DR. Walsh ([id number]) on 05/22/2017 7:08:54 PM Referred By: [facility] Confirmed By:DR. Jillian CONCEPCION MD
== END ==
LOC: LABBT 12:30
PROVIDERS: ATTEND Thoracic Surgery (Cardiothoracic Vascular Surgery)
DX: Z01.812 Encounter for preprocedural laboratory examination (principal); I25.10 Atherosclerotic heart disease of native coronary artery without angina pectoris
CPT/HCPCS: 80048; 85027; 86850; 86900; 86901; 93005; 93010